=== PATIENT | male | born 1960 | race Caucasian/White ===

== ENCOUNTER 2017-07-11 10:10 | Emergency (ER) | payer OTHER ==
[~2017-07-11] VITALS: Ht 180.3 cm; Wt 87.0 kg
[~2017-07-11 10:10] MED LIST: ALPR0.254 PO; HYDR-3720 PO; HYDR4TAB51 PO; OXYM10TA PO; PREG50CA PO; [UNRECOGNIZED DRUG - OTHER] PO
[2017-07-11 10:15] VITALS: Ht 180.3 cm; Wt 87.0 kg
--- NOTE | 2017-07-11 10:58 | ERD ---
ER Documentation Chief Complaint Date/Time DATE: 07/11/17 TIME: 10:55 Chief Complaint Needs medication refill. HPI 57-year-old male comes in with a history of cervical spine fracture with chronic pain presenting for medication refill for Neurontin, nortriptyline, naproxen, Flexeril, soma, [place]. Patient goes to a pain clinic, seen Dr. Ayala , stating that his appointment is not until , and his doctor is out of town. He presents emergency department asking for refill because he has run out of all of his medications. He takes uses a morphine pump at home as well. ROS All systems reviewed and are negative except as per history of present illness. Medications Home Meds Active Scripts Hydromorphone Hcl* (Dilaudid*) 4 Mg Tablet, 4 MG PO TID Y for PAIN, #14 TAB Prov:MORIAH BLUM MD 09/16/16 Reported Medications Alprazolam (Xanax) 0.25 Mg Tab, 0.25 MG PO TID for ANXIETY, TAB 08/13/14 Carisoprodol-Aspirin (Soma Compound) 300-200MG Tab, 1 TAB PO QID Y for PAIN, TAB 08/13/14 Oxymorphone Hcl (Opana) 10 Mg Tablet, 5 MG PO QID Y for PAIN, TAB 08/13/14 Pregabalin* (Lyrica*) 50 Mg Capsule, 50 MG PO TID for PAIN, CAP 08/13/14 Hydrocodone Bit-Acetaminophen* ([place]*) 7.5-325 Tablet, 1 TAB PO QID Y for PAIN , TAB 08/13/14 Allergies Allergies: Coded Allergies: No Known Allergy (Unverified , 08/20/14) PMhx/Soc History of Surgery: Yes (appendectomy, pain pump) Anesthesia Reaction: No Hx Respiratory Disorders: No Hx Cardiac Disorders: No Hx Psychiatric Problems: Yes Hx Miscellaneous Medical Probl: Yes (ETOH/drug abuse, neuropathy, appendectomy) Hx Alcohol Use: No Hx Substance Use: No Hx Tobacco Use: No Physical Exam Vitals Vital Signs Date Time Temp Pulse Resp B/P Pulse Ox O2 Delivery O2 Flow Rate FiO2 07/11/17 10:15 97.4 105 16 170/87 95 Physical Exam General: Well-developed, well-nourished. The patient appears in no acute distress. HEENT: Head is normocephalic, atraumatic. No scleral icterus. Neck: Supple. No meningismus. Lungs: Clear to auscultation. Normal air movement. Heart: Regular rate and rhythm. S1 and S2 are normal. No murmurs, gallops, or rubs. Abdomen: Nondistended. Extremities: No clubbing or cyanosis. Moving extremities x 4. No weakness. Neurologic: Alert and oriented 3. No focal deficits. Normal speech and gait. Skin: Normal turgor. No rash or lesions. Results 24 hrs Current Medications Medications (Trade) Dose Ordered Sig/Popeye Route PRN Reason Start Time Stop Time Status Last Admin Dose Admin Acetaminophen/ Hydrocodone Bitart ([place] ([id number])) 1 tab ONCE ONCE PO 07/11/17 11:00 07/11/17 11:01 Procedures/MDM I spoke with his pain clinic, they stated that he has a pain contract and it was not advised to refill the [place] or Soma without the permission from his doctor. They will be able to do a refill request with the pharmacy directly for his for other medications. I spoke with the patient, I have explained her drug policy as well as my communication with the office and that he needs to follow-up with his pain doctor. He also states that he is driving home at this time and although I did offer him pain medication, the medication was canceled because he was going to take himself home. He does to use morphine at home for pain control otherwise. Patient's blood pressure was elevated (>120/80) but appears stable without evidence of hypertension emergency or urgency. The patient was counseled about the risks of hypertension and urged to pursue outpatient monitoring and therapy within a week with their primary care physician. Departure Diagnosis: Primary Impression: Encounter for medication refill Condition: Good Patient Instructions: Chronic Pain Additional Instructions: Follow-up with your pain doctor as soon as possible. ALONSO MEDEIROS PA-C Jul 11, 2017 10:58
[2017-07-11] MEDS ORDERED: HYDROCODONE/APAP (10/325) TAB PO ONE (11:00)
== END 2017-07-11 11:07 | disposition home or self-care (01) ==
LOC: FTE 10:10
DX: Z76.0 Encounter for issue of repeat prescription (principal)
CPT/HCPCS: 99281

== ENCOUNTER 2017-08-02 08:57 | Emergency (ER) | payer OTHER ==
[~2017-08-02] VITALS: Ht 165.1 cm; Wt 86.0 kg
[2017-08-02 08:58] VITALS: Ht 165.1 cm; Wt 86.0 kg
[2017-08-02] MEDS ORDERED: GABA400C14 PO (09:16)
[2017-08-02] MEDS ORDERED: HYDROCODONE/APAP (10/325) TAB PO ONE (09:30)
--- NOTE | 2017-08-02 12:50 | ERD ---
ER Documentation Chief Complaint Date/Time DATE: 08/02/17 TIME: 12:48 Chief Complaint refill of norco, gabapentin, soma HPI Patient is a 57-year-old male with chronic back pain who presents requiring refills of his medications. He says that he needs Soma, gabapentin, and [place]. He has an appointment scheduled with his pain management doctor on . He did have Dilaudid filled on July 18. He is complaining of neck pain. He says that he gets gabapentin 800 mg 4 times a day. Upon review of old medical records the patient does have a [facility] database which is positive for prescriptions filled by his pain management doctor. ROS All systems reviewed and are negative except as per history of present illness. Medications Home Meds Active Scripts Gabapentin* (Gabapentin*) 400 Mg Capsule, 800 MG PO QID, #28 CAP Prov:MANI COLEMAN MD 08/02/17 Hydromorphone Hcl* (Dilaudid*) 4 Mg Tablet, 4 MG PO TID Y for PAIN, #14 TAB Prov:MORIAH BLUM MD 09/16/16 Reported Medications Alprazolam (Xanax) 0.25 Mg Tab, 0.25 MG PO TID for ANXIETY, TAB 08/13/14 Carisoprodol-Aspirin (Soma Compound) 300-200MG Tab, 1 TAB PO QID Y for PAIN, TAB 08/13/14 Oxymorphone Hcl (Opana) 10 Mg Tablet, 5 MG PO QID Y for PAIN, TAB 08/13/14 Pregabalin* (Lyrica*) 50 Mg Capsule, 50 MG PO TID for PAIN, CAP 08/13/14 Hydrocodone Bit-Acetaminophen* ([place]aw[place]*) 7.5-325 Tablet, 1 TAB PO QID Y for PAIN , TAB 08/13/14 Allergies Allergies: Coded Allergies: No Known Allergy (Unverified , 08/20/14) PMhx/Soc History of Surgery: Yes (appendectomy, pain pump) Anesthesia Reaction: No Hx Respiratory Disorders: No Hx Cardiac Disorders: No Hx Psychiatric Problems: Yes Hx Miscellaneous Medical Probl: Yes (ETOH/drug abuse, neuropathy, appendectomy) Hx Alcohol Use: No Hx Substance Use: No Hx Tobacco Use: No Smoking Status: Never smoker FmHx Family History: diabetes Physical Exam Vitals Vital Signs Date Time Temp Pulse Resp B/P Pulse Ox O2 Delivery O2 Flow Rate FiO2 08/02/17 08:58 98.6 90 18 160/98 99 Physical Exam Const: Moderate distress secondary to neck pain Head: Atraumatic Eyes: Normal Conjunctiva ENT: Normal External Ears, Nose and Mouth. Neck: Neck pain with previous surgical scar Resp: Clear to auscultation bilaterally Cardio: Regular rate and rhythm, no murmurs Abd: Soft, non tender, non distended. Normal bowel sounds Skin: No petechiae or rashes Back: No midline or flank tenderness Ext: No cyanosis, or edema Neur: Awake and alert Psych: Normal Mood and Affect Results 24 hrs Current Medications Medications (Trade) Dose Ordered Sig/Popeye Route PRN Reason Start Time Stop Time Status Last Admin Dose Admin Acetaminophen/ Hydrocodone Bitart ([place] (10/325)) 1 tab ONCE ONCE PO 08/02/17 09:30 08/02/17 09:31 DC 08/02/17 09:57 Procedures/MDM Patient is a 57-year-old male presents with acute on chronic neck pain. The patient is requesting refills for his Soma, gabapentin, and [place]. I told him that I would not give him any controlled substance prescriptions for the Shaw[place] or Soma. I will give him prescription for gabapentin. He was given 1 dose of Shaw[place] in the emergency department but again will not be given prescriptions. The patient will need to follow-up with his pain management doctor. I did call the pain management doctor said that he can see the patient in his office tomorrow morning at 8 AM. The patient can return for any worsening symptoms. Departure Diagnosis: Primary Impression: Chronic pain Chronic pain type: other chronic pain Qualified Code: G89.29 - Other chronic pain Condition: Fair Patient Instructions: Chronic Pain Referrals: Dr. Bettencourt Additional Instructions: SPECIALIST: YOU HAVE A MEDICAL CONDITION WHICH REQUIRES YOU TO SEE A SPECIALIST WITHIN THE NEXT 1-2 DAYS. PLEASE FOLLOW UP WITH YOUR PRIMARY PHYSICIAN FOR REFFERAL.IF YOU DO NOT HAVE A PRIMARY CARE PHYSICIAN AND/OR YOU CAN NOT AFFORD TO SEE A PHYSICIAN THE FOLLOWING RESOURCES HAVE BEEN SUPPLIED TO YOU. IT IS YOUR RESPONSIBILITY TO BE SEEN BY THE SPECIALIST MANI COLEMAN MD Aug 02, 2017 12:50
== END 2017-08-02 10:39 | disposition home or self-care (01) ==
LOC: E/R 08:57
DX: G89.29 Other chronic pain (principal); M54.9 Dorsalgia, unspecified; M54.2 Cervicalgia
CPT/HCPCS: 99283